=== PATIENT | female | born 1960 | race Caucasian/White ===

== ENCOUNTER → 2020-06-17 | Outpatient (CLI) | payer OTHER | LOC: KOH-I 11:43 | DX: M79.672 Pain in left foot (principal); S92.515A Nondisplaced fracture of proximal phalanx of left lesser toe(s), initial encounter for closed fracture | CPT/HCPCS: 73630 ==

== ENCOUNTER → 2020-10-05 | Outpatient (CLI) | payer OTHER | LOC: KOH-I 08:27 | DX: S92.512A Displaced fracture of proximal phalanx of left lesser toe(s), initial encounter for closed fracture (principal) | CPT/HCPCS: 73660 ==